=== PATIENT | male | born 1950 | race Caucasian/White ===

== ENCOUNTER 2023-07-13 14:35 | Emergency (ER) | payer OTHER ==
[2023-07-13] MEDS ORDERED: TETRACAINE 0.5% HCL 0.6ML DROPPER.BOTTLE OU ONE (15:19)
[2023-07-13] MEDS ORDERED: FLUORESCEIN NA 1 EA STRIP OU ONE (15:20)
[2023-07-13] MEDS ORDERED: TETRACAINE 0.5% OPHTH SOLN 2 ML BOTTLE ONE (15:22)
[2023-07-13] MEDS ORDERED: FLUORESCEIN NA 1 EA STRIP ONE (15:22)
[2023-07-13 15:32] VITALS: BMI 28.8
[2023-07-13 21:16] VITALS: BP 100/60; TEMP 98.5
[2023-07-13 21:28] VITALS: PULSE 73; RESP 18
== END 2023-07-13 21:35 | disposition short-term general hospital (02) ==
LOC: JER 14:35
DX: H53.8 Other visual disturbances (principal); M54.9 Dorsalgia, unspecified; G89.29 Other chronic pain; H40.052 Ocular hypertension, left eye
CPT/HCPCS: 76512; 99285-25

== ENCOUNTER 2023-08-13 14:21 | Observation (INO) | payer OTHER ==
[2023-08-13 16:14] VITALS: BMI 26.9
[2023-08-13 16:44] LABS: BASO % 0.7 % (0-2.0); EOS % 3.2 % (0-4.5); HEMATOCRIT 44.1 % (35.4-49); MCH 33.6 pg (25.7-33.7); MCHC 33.9 g/dl (32.0-35.9); MEAN PLT VOLUME 9.2 fl (7.5-11.1); MONO % 6.2 % (3.8-10.2); NEUT % 73.9 % (42.8-82.8); PLATELET COUNT 150 10^3/uL (134-434); RBC 4.45 M/mm3 (4.00-5.60); RDW 14.1 % (11.9-15.9); WHITE BLOOD COUNT 5.3 K/mm3 (4.0-10.0)
[2023-08-13 16:53] LABS: EPI CELLS 1 /uL (0-25.1); HYALINE CASTS 0 /uL (0-3.1); PH,URINE 6.5 (5.0-8.0); URINE APPEARANCE CLEAR; URINE BACTERIA 8 /uL (0-1359); URINE BILIRUBIN NEGATIVE (NEGATIVE); URINE COLOR YELLOW; URINE GLUCOSE (UA) 3+ (NEGATIVE); URINE KETONE NEGATIVE (NEGATIVE); URINE LEUK ESTERASE NEGATIVE (NEGATIVE); URINE NITRITE NEGATIVE (NEGATIVE); URINE PROTEIN 1+ (NEGATIVE); URINE RBC 9 /uL (0-23.9); URINE WBC 0 /uL (0-25.8)
[2023-08-13 17:02] LABS: POTASSIUM 3.9 mmol/L (3.5-5.1)
[2023-08-13 17:05] LABS: ALBUMIN 3.5 g/dl (3.4-5.0); MAGNESIUM 1.5 mg/dL (1.8-2.4)
[2023-08-13 17:08] LABS: CREATININE 1.1 mg/dL (0.55-1.3)
[2023-08-13 17:09] LABS: TOT PROT 6.8 g/dl (6.4-8.2)
[2023-08-13] MEDS ORDERED: MAGNESIUM SULFATE IN WATER 2 GM/50 ML IVPB IVPB ONE ×2 (17:28→18:20)
[2023-08-13 17:43] LABS: COCAINE, UR NEGATIVE (NEGATIVE); METHADONE, UR NEGATIVE (NEGATIVE); OPIATES, URI NEGATIVE (NEGATIVE); PHENCYCLIDINE,URINE NEGATIVE (NEGATIVE); URINE AMPHETAMINES NEGATIVE (NEGATIVE); URINE BARBITURATES NEGATIVE (NEGATIVE); URINE BENZODIAZEPINES NEGATIVE (NEGATIVE)
[2023-08-13] MEDS ORDERED: ACETAMINOPHEN 325 MG TABLET (FP) PO PRN (21:51)
[2023-08-13] MEDS ORDERED: DOCUSATE SODIUM 100 MG CAPSULE (FP) PO PRN (21:51)
[2023-08-13] MEDS ORDERED: SODIUM CHLORIDE 1,000 ML IV SCH (22:00)
[2023-08-13] MEDS ORDERED: MECLIZINE HCL 12.5 MG TABLET PO PRN (23:25)
[2023-08-13] MEDS: INSULIN ASPART SLIDING SCALE (NOVOLOG) 1 VIAL SQ SCH (23:47)
[2023-08-13] MEDS ORDERED: LISINOPRIL 20 MG TABLET PO ONE (23:57)
[2023-08-14] MEDS ORDERED: CARVEDILOL 3.125 MG TABLET (FP) ONE (00:17)
[2023-08-14] MEDS ORDERED: LISINOPRIL 20 MG TABLET ONE (00:17)
[2023-08-14] MEDS: CARVEDILOL 3.125 MG TABLET (FP) PO SCH ×3 (00:18→21:15)
[2023-08-14] MEDS: INSULIN ASPART SLIDING SCALE (NOVOLOG) 1 VIAL SQ SCH ×4 (06:32→21:17)
[2023-08-14 08:22] LABS: BASO % 0.9 % (0-2.0); EOS % 3.9 % (0-4.5); HEMATOCRIT 45.4 % (35.4-49); HEMOGLOBIN 15.1 GM/dL (11.7-16.9); LYMPH % 21.3 % (8-40); MCH 33.3 pg (25.7-33.7); MCHC 33.3 g/dl (32.0-35.9); MEAN CELL VOLUME 99.9 fl (80-96); MEAN PLT VOLUME 8.9 fl (7.5-11.1); MONO % 7.5 % (3.8-10.2); NEUT % 66.4 % (42.8-82.8); PLATELET COUNT 141 10^3/uL (134-434); RBC 4.54 M/mm3 (4.00-5.60); RDW 13.8 % (11.9-15.9); WHITE BLOOD COUNT 5.1 K/mm3 (4.0-10.0)
[2023-08-14] MEDS ORDERED: DOCUSATE SODIUM 100 MG CAPSULE (FP) PO PRN (08:23)
[2023-08-14] MEDS ORDERED: MECLIZINE HCL 12.5 MG TABLET PO PRN (08:23)
[2023-08-14] MEDS ORDERED: SODIUM CHLORIDE 1,000 ML IV SCH (08:23)
[2023-08-14 08:45] LABS: POTASSIUM 3.8 mmol/L (3.5-5.1)
[2023-08-14 08:50] LABS: CALCIUM 9.5 mg/dL (8.5-10.1)
[2023-08-14 08:52] LABS: MAGNESIUM 1.8 mg/dL (1.8-2.4)
[2023-08-14 08:53] LABS: PHOSPHOROUS 2.7 mg/dL (2.5-4.9)
[2023-08-14] MEDS: TAMSULOSIN HCL 0.4 MG CAP PO SCH (09:11)
[2023-08-14] MEDS: ASPIRIN COATED 81 MG TABLET.EC PO SCH (09:12)
[2023-08-14] MEDS: amLODIPine BESYLATE 5 MG TABLET (FP) PO SCH (09:12)
[2023-08-14] MEDS ORDERED: ATORVASTATIN CA 80 MG TABLET (FP) PO SCH (22:00)
[2023-08-15] MEDS: ACETAMINOPHEN 325 MG TABLET (FP) PO PRN (05:05)
[2023-08-15] MEDS: INSULIN ASPART SLIDING SCALE (NOVOLOG) 1 VIAL SQ SCH ×4 (06:34→21:55)
[2023-08-15] MEDS: TAMSULOSIN HCL 0.4 MG CAP PO SCH (09:31)
[2023-08-15] MEDS: CARVEDILOL 3.125 MG TABLET (FP) PO SCH ×2 (09:31→21:55)
[2023-08-15] MEDS: ASPIRIN COATED 81 MG TABLET.EC PO SCH (09:31)
[2023-08-15] MEDS: amLODIPine BESYLATE 5 MG TABLET (FP) PO SCH (09:31)
[2023-08-15] MEDS: CLOPIDOGREL BISULFATE 75 MG TABLET (FP) PO SCH (15:22)
[2023-08-15] MEDS ORDERED: ATORVASTATIN CA 20 MG TABLET (FP) PO SCH (22:00)
[2023-08-16] MEDS: ACETAMINOPHEN 325 MG TABLET (FP) PO PRN (00:02)
[2023-08-16] MEDS ORDERED: MELATONIN 5 MG TABLETS PO PRN (01:34)
[2023-08-16] MEDS: INSULIN ASPART SLIDING SCALE (NOVOLOG) 1 VIAL SQ SCH ×2 (06:10→11:50)
[2023-08-16] MEDS: amLODIPine BESYLATE 5 MG TABLET (FP) PO SCH (09:33)
[2023-08-16] MEDS: CLOPIDOGREL BISULFATE 75 MG TABLET (FP) PO SCH (09:33)
[2023-08-16] MEDS: ASPIRIN COATED 81 MG TABLET.EC PO SCH (09:33)
[2023-08-16] MEDS: TAMSULOSIN HCL 0.4 MG CAP PO SCH (09:33)
[2023-08-16] MEDS: CARVEDILOL 3.125 MG TABLET (FP) PO SCH (09:33)
[2023-08-16 16:04] VITALS: BP 140/73; PULSE 77; RESP 20; TEMP 98.1
== END 2023-08-16 16:54 | disposition home or self-care (01) ==
LOC: JER 14:21 → JERBED 20:45 → J4W 08-14 04:51
PROVIDERS: ADMIT Internal Medicine; ATTEND Internal Medicine
PROC: 3E013VG Introduction of Insulin into Subcutaneous Tissue, Percutaneous Approach (ICD-10-PCS; principal; 2023-08-13)
PROC: 3E033GC Introduction of Other Therapeutic Substance into Peripheral Vein, Percutaneous Approach (ICD-10-PCS; 2023-08-13)
PROC: 3E0337Z Introduction of Electrolytic and Water Balance Substance into Peripheral Vein, Percutaneous Approach (ICD-10-PCS; 2023-08-13)
DX: R26.81 Unsteadiness on feet (principal); H40.9 Unspecified glaucoma; R20.8 Other disturbances of skin sensation; N40.0 Benign prostatic hyperplasia without lower urinary tract symptoms; E11.40 Type 2 diabetes mellitus with diabetic neuropathy, unspecified; R53.1 Weakness; R42 Dizziness and giddiness; Z88.2 Allergy status to sulfonamides; Z95.5 Presence of coronary angioplasty implant and graft; I25.2 Old myocardial infarction; F17.210 Nicotine dependence, cigarettes, uncomplicated; Z90.49 Acquired absence of other specified parts of digestive tract; Z98.49 Cataract extraction status, unspecified eye; Z87.828 Personal history of other (healed) physical injury and trauma
CPT/HCPCS: 0241U-QW; 36415; 70450-TC; 71045-TC-FY; 72170-TC-FY; 80048; 80053; 80061; 80307; 81003; 82962; 83036; 83735; 83880; 84100; 84439; 84443; 84450; 84460; 84484; 85025; 87086; 93005; 93010; 93306-TC; 96361; 96365; 96372; 97116-GP; 97162-GP; 99285-25; G0378

== ENCOUNTER 2023-10-31 09:29 | Emergency (ER) | payer OTHER ==
[2023-10-31 09:40] VITALS: BP 138/63; PULSE 77; RESP 17; TEMP 97.6; BMI 29.5
== END 2023-10-31 13:43 | disposition home or self-care (01) ==
LOC: JERFT 09:29 → JER 09:29
DX: H40.89 Other specified glaucoma (principal)
CPT/HCPCS: 99282-25

== ENCOUNTER 2023-11-28 12:58 | Inpatient (IN) | payer OTHER ==
[2023-11-28 13:34] VITALS: BMI 31.3
[2023-11-28] MEDS ORDERED: morphine SULFATE 4 MG/ML VIAL ONE ×2 (14:11→15:07)
[2023-11-28] MEDS: morphine CARPU-JECT 2 MG/1 ML DISP.SYRIN IVPUSH ONE (14:22)
[2023-11-28 14:30] LABS: BASO % 0.6 % (0-2.0); EOS % 2.8 % (0-4.5); HEMATOCRIT 38.7 % (35.4-49); LYMPH % 16.3 % (8-40); MCH 33.2 pg (25.7-33.7); MCHC 33.7 g/dl (32.0-35.9); MEAN CELL VOLUME 98.6 fl (80-96); MEAN PLT VOLUME 8.4 fl (7.5-11.1); MONO % 6.1 % (3.8-10.2); NEUT % 74.2 % (42.8-82.8); PLATELET COUNT 186 10^3/uL (134-434); RBC 3.92 M/mm3 (4.00-5.60); RDW 14.6 % (11.9-15.9); WHITE BLOOD COUNT 6.9 K/mm3 (4.0-10.0)
[2023-11-28 14:35] LABS: INR 1.14 (0.83-1.09); PROTHROMBIN TIME (PATIENT) 13.2 SEC (9.7-13.0)
[2023-11-28 14:38] LABS: ACTIVATED PTT 30.1 SECONDS (25.2-36.5)
[2023-11-28] MEDS: morphine CARPU-JECT 4 MG/1 ML DISP.SYRIN IVPUSH ONE (15:15)
[2023-11-28 15:22] LABS: POTASSIUM 4.7 mmol/L (3.5-5.1)
[2023-11-28 15:24] LABS: ALBUMIN 3.4 g/dl (3.4-5.0); BLOOD UREA NITROGEN 29.8 mg/dL (7-18); CALCIUM 9.9 mg/dL (8.5-10.1); MAGNESIUM 1.6 mg/dL (1.8-2.4)
[2023-11-28 15:27] LABS: CREATININE 1.3 mg/dL (0.55-1.3)
[2023-11-28 15:29] LABS: BILIRUBIN,TOTAL 1.5 mg/dL (0.2-1); TOT PROT 6.5 g/dl (6.4-8.2)
[2023-11-28] MEDS ORDERED: MAGNESIUM 1GM/D5W - 1 GM/100 ML IVPB IVPB ONE (18:55)
[2023-11-28] MEDS ORDERED: oxyCODONE HCL 5 MG TABLET ONE (18:55)
[2023-11-28] MEDS: oxyCODONE HCL 5 MG TABLET PO ONE (19:07)
[2023-11-28] MEDS: MAGNESIUM SULF 50% (8.12 MEQ/2 ML-1 GM VIAL) IVPB ONE (19:42)
[2023-11-29] MEDS ORDERED: ZOLPIDEM TARTRATE 5 MG TABLET ONE (00:03)
[2023-11-29] MEDS: ZOLPIDEM TARTRATE 5 MG TABLET PO ONE (00:29)
[2023-11-29] MEDS ORDERED: morphine SULFATE 4 MG/ML VIAL ONE (00:57)
[2023-11-29] MEDS: morphine SULFATE 4 MG/ML VIAL IVPUSH PRN ×2 (01:02→22:41)
[2023-11-29] MEDS: FAMOTIDINE 20 MG/50 ML IVPB 20 MG/50 ML MG IVPB ONE (01:27)
[2023-11-29] MEDS: INSULIN (NOVOLOG) ASPART 100 UNITS/ML 10ML VIAL SQ ONE ×2 (05:38→20:19)
[2023-11-29 07:43] LABS: BASO % 0.4 % (0-2.0); BLOOD UREA NITROGEN 19.5 mg/dL (7-18); CALCIUM 9.5 mg/dL (8.5-10.1); EOS % 1.5 % (0-4.5); HEMATOCRIT 38.8 % (35.4-49); HEMOGLOBIN 13.5 GM/dL (11.7-16.9); LYMPH % 11.4 % (8-40); MCH 33.9 pg (25.7-33.7); MCHC 34.8 g/dl (32.0-35.9); MEAN CELL VOLUME 97.3 fl (80-96); MEAN PLT VOLUME 8.5 fl (7.5-11.1); MONO % 6.8 % (3.8-10.2); NEUT % 79.9 % (42.8-82.8); PLATELET COUNT 178 10^3/uL (134-434); RBC 3.99 M/mm3 (4.00-5.60); RDW 14.7 % (11.9-15.9); WHITE BLOOD COUNT 9.8 K/mm3 (4.0-10.0)
[2023-11-29 07:46] LABS: CREATININE 1.1 mg/dL (0.55-1.3)
[2023-11-29] MEDS: TAMSULOSIN HCL 0.4 MG CAP PO SCH (09:48)
[2023-11-29] MEDS: amLODIPine BESYLATE 5 MG TABLET (FP) PO SCH (10:32)
[2023-11-29] MEDS: CARVEDILOL 3.125 MG TABLET (FP) PO SCH ×2 (10:32→23:03)
[2023-11-29] MEDS: INSULIN ASPART SLIDING SCALE (NOVOLOG) 1 VIAL SQ SCH ×2 (16:41→23:10)
[2023-11-29] MEDS ORDERED: FENTANYL CITRATE/PF 50 MCG/ML VIAL ONE ×5 (17:20→19:12)
[2023-11-29] MEDS ORDERED: PROPOFOL 20 ML ONE ×2 (17:20→17:24)
[2023-11-29] MEDS ORDERED: ONDANSETRON 4 MG/2 ML VIAL ONE (17:20)
[2023-11-29] MEDS ORDERED: LIDOCAINE HCL/PF 2% SDV 5ML VIAL ONE (17:20)
[2023-11-29] MEDS ORDERED: ceFAZolin SODIUM 1 GM VIAL ONE (17:20)
[2023-11-29] MEDS ORDERED: MIDAZOLAM HCL 2 MG/2 ML SINGLE DOSE VIAL ONE (17:20)
[2023-11-29] MEDS: ceFAZolin SODIUM 1 GM VIAL IVPB ONE (17:41)
[2023-11-29] MEDS ORDERED: ONDANSETRON 4 MG/2 ML VIAL IVPUSH PRN ×3 (19:46→21:16)
[2023-11-29] MEDS ORDERED: ACETAMINOPHEN 1000 MG/100 ML BAG IVPB ONE (19:47)
[2023-11-29] MEDS ORDERED: LACTATED RINGERS SOLUTION 1,000 ML IV SCH (20:00)
[2023-11-29] MEDS ORDERED: oxyCODONE HCL 5 MG TABLET PO PRN (20:24)
[2023-11-29] MEDS ORDERED: morphine SULFATE 4 MG/ML VIAL IVPUSH PRN (20:30)
[2023-11-29] MEDS ORDERED: ACETAMINOPHEN INJECTION 100 ML IVPB ONE (20:38)
[2023-11-29] MEDS: ACETAMINOPHEN 1000 MG/100 ML BAG IVPB ONE ×2 (20:44→21:18)
[2023-11-29] MEDS: LACTATED RINGERS SOLUTION 1,000 ML IV SCH ×2 (21:01→23:03)
[2023-11-29 21:05] LABS: HEMATOCRIT 39.3 % (35.4-49); HEMOGLOBIN 13.2 GM/dL (11.7-16.9); MCH 33.2 pg (25.7-33.7); MCHC 33.6 g/dl (32.0-35.9); MEAN CELL VOLUME 98.8 fl (80-96); MEAN PLT VOLUME 8.3 fl (7.5-11.1); PLATELET COUNT 177 10^3/uL (134-434); RBC 3.98 M/mm3 (4.00-5.60); RDW 14.7 % (11.9-15.9); WHITE BLOOD COUNT 14.7 K/mm3 (4.0-10.0)
[2023-11-29] MEDS ORDERED: INSULIN ASPART SLIDING SCALE (NOVOLOG) 1 VIAL SQ SCH (22:00)
[2023-11-29] MEDS ORDERED: CARVEDILOL 3.125 MG TABLET (FP) PO SCH (22:00)
[2023-11-29] MEDS ORDERED: ATORVASTATIN CA 20 MG TABLET (FP) PO SCH ×2 (22:00)
[2023-11-29 22:17] LABS: POTASSIUM 4.6 mmol/L (3.5-5.1)
[2023-11-29 22:19] LABS: CALCIUM 9.1 mg/dL (8.5-10.1)
[2023-11-29 22:20] LABS: BLOOD UREA NITROGEN 18.9 mg/dL (7-18)
[2023-11-29 22:23] LABS: CREATININE 1.4 mg/dL (0.55-1.3)
[2023-11-29] MEDS ORDERED: hydrOXYzine HCL 50 MG/ML VIAL IM ONE (22:54)
[2023-11-29] MEDS: ATORVASTATIN CA 20 MG TABLET (FP) PO SCH (23:03)
[2023-11-30] MEDS: CEFAZOLIN SODIUM 2 GM in DEXTROSE 5%-WATER 100 ML IVPB SCH (01:53)
[2023-11-30] MEDS ORDERED: CEFAZOLIN SODIUM 2 GM in DEXTROSE 5%-WATER 100 ML IVPB SCH (02:00)
[2023-11-30] MEDS: ACETAMINOPHEN 1000 MG/100 ML BAG IVPB ONE (02:04)
[2023-11-30 06:46] LABS: BASO % 0.5 % (0-2.0); EOS % 0.8 % (0-4.5); HEMATOCRIT 30.6 % (35.4-49); HEMOGLOBIN 10.5 GM/dL (11.7-16.9); LYMPH % 11.6 % (8-40); MCH 33.6 pg (25.7-33.7); MCHC 34.2 g/dl (32.0-35.9); MEAN CELL VOLUME 98.3 fl (80-96); MEAN PLT VOLUME 8.5 fl (7.5-11.1); MONO % 6.9 % (3.8-10.2); NEUT % 80.2 % (42.8-82.8); PLATELET COUNT 149 10^3/uL (134-434); RBC 3.11 M/mm3 (4.00-5.60); RDW 14.4 % (11.9-15.9); WHITE BLOOD COUNT 9.6 K/mm3 (4.0-10.0)
[2023-11-30 07:33] LABS: POTASSIUM 4.2 mmol/L (3.5-5.1)
[2023-11-30 07:37] LABS: CALCIUM 8.4 mg/dL (8.5-10.1)
[2023-11-30 07:38] LABS: BLOOD UREA NITROGEN 25.4 mg/dL (7-18)
[2023-11-30 07:41] LABS: CREATININE 1.5 mg/dL (0.55-1.3)
[2023-11-30 07:43] LABS: TOT PROT 5.4 g/dl (6.4-8.2)
[2023-11-30 07:52] LABS: ALBUMIN 2.6 g/dl (3.4-5.0)
[2023-11-30] MEDS ORDERED: TAMSULOSIN HCL 0.4 MG CAP PO SCH (08:30)
[2023-11-30] MEDS: TAMSULOSIN HCL 0.4 MG CAP PO SCH (08:38)
[2023-11-30] MEDS: amLODIPine BESYLATE 5 MG TABLET (FP) PO SCH (09:31)
[2023-11-30] MEDS: oxyCODONE HCL 5 MG TABLET PO PRN (09:32)
[2023-11-30] MEDS: ENOXAPARIN NA (PORCINE) 40 MG/0.4 ML DISP.SYRIN SQ SCH (09:33)
[2023-11-30] MEDS ORDERED: ENOXAPARIN NA (PORCINE) 40 MG/0.4 ML DISP.SYRIN SQ SCH (10:00)
[2023-11-30] MEDS ORDERED: amLODIPine BESYLATE 5 MG TABLET (FP) PO SCH (10:00)
[2023-11-30] MEDS ORDERED: INSULIN (NOVOLOG) ASPART 100 UNITS/ML 10ML VIAL ONE (21:41)
[2023-12-01 07:19] LABS: BASO % 0.5 % (0-2.0); HEMATOCRIT 26.1 % (35.4-49); HEMOGLOBIN 9.1 GM/dL (11.7-16.9); LYMPH % 15.2 % (8-40); MCH 34.4 pg (25.7-33.7); MCHC 34.9 g/dl (32.0-35.9); MEAN CELL VOLUME 98.5 fl (80-96); MEAN PLT VOLUME 8.6 fl (7.5-11.1); MONO % 6.9 % (3.8-10.2); NEUT % 74.4 % (42.8-82.8); PLATELET COUNT 139 10^3/uL (134-434); RBC 2.65 M/mm3 (4.00-5.60); RDW 14.4 % (11.9-15.9); WHITE BLOOD COUNT 8.7 K/mm3 (4.0-10.0)
[2023-12-01 08:11] LABS: POTASSIUM 4.5 mmol/L (3.5-5.1)
[2023-12-01 08:13] LABS: ALBUMIN 2.3 g/dl (3.4-5.0); BLOOD UREA NITROGEN 24.7 mg/dL (7-18)
[2023-12-01 08:16] LABS: CREATININE 1.2 mg/dL (0.55-1.3)
[2023-12-01 08:18] LABS: BILIRUBIN,TOTAL 1.9 mg/dL (0.2-1); TOT PROT 5.3 g/dl (6.4-8.2)
[2023-12-02 08:09] LABS: BASO % 0.5 % (0-2.0); EOS % 3.3 % (0-4.5); HEMATOCRIT 25.1 % (35.4-49); HEMOGLOBIN 8.7 GM/dL (11.7-16.9); LYMPH % 16.6 % (8-40); MCH 33.7 pg (25.7-33.7); MCHC 34.6 g/dl (32.0-35.9); MEAN CELL VOLUME 97.3 fl (80-96); MEAN PLT VOLUME 8.6 fl (7.5-11.1); MONO % 6.4 % (3.8-10.2); NEUT % 73.2 % (42.8-82.8); PLATELET COUNT 167 10^3/uL (134-434); RBC 2.58 M/mm3 (4.00-5.60); RDW 13.8 % (11.9-15.9)
[2023-12-02 08:30] LABS: POTASSIUM 4.4 mmol/L (3.5-5.1)
[2023-12-02 08:34] LABS: ALBUMIN 2.4 g/dl (3.4-5.0); CALCIUM 8.4 mg/dL (8.5-10.1)
[2023-12-02 08:35] LABS: BLOOD UREA NITROGEN 24.6 mg/dL (7-18)
[2023-12-02 08:38] LABS: CREATININE 1.1 mg/dL (0.55-1.3)
[2023-12-02 08:39] LABS: BILIRUBIN,TOTAL 2.3 mg/dL (0.2-1); TOT PROT 5.4 g/dl (6.4-8.2)
[2023-12-02] MEDS: POLYETHYLENE GLYCOL (HEALTHYLAX) 3350 17 GM PACKET PO SCH (09:53)
[2023-12-02] MEDS: ASPIRIN COATED 81 MG TABLET.EC PO SCH (09:53)
[2023-12-02] MEDS: ACETAMINOPHEN 1000 MG/100 ML BAG IVPB SCH (09:55)
[2023-12-02] MEDS: LACTATED RINGERS SOLUTION 1,000 ML IV SCH (21:37)
[2023-12-02] MEDS: ATORVASTATIN CA 20 MG TABLET (FP) PO SCH (21:37)
[2023-12-02] MEDS: CARVEDILOL 3.125 MG TABLET (FP) PO SCH (21:37)
[2023-12-02] MEDS: INSULIN ASPART SLIDING SCALE (NOVOLOG) 1 VIAL SQ SCH (21:57)
[2023-12-03] MEDS: ACETAMINOPHEN 1000 MG/100 ML BAG IVPB SCH (02:54)
[2023-12-03] MEDS: oxyCODONE HCL 5 MG TABLET PO ONE (06:17)
[2023-12-03] MEDS: TAMSULOSIN HCL 0.4 MG CAP PO SCH (08:34)
[2023-12-03] MEDS: ASPIRIN COATED 81 MG TABLET.EC PO SCH (09:29)
[2023-12-03] MEDS: amLODIPine BESYLATE 5 MG TABLET (FP) PO SCH (09:29)
[2023-12-03] MEDS: POLYETHYLENE GLYCOL (HEALTHYLAX) 3350 17 GM PACKET PO SCH (09:29)
[2023-12-03] MEDS: ENOXAPARIN NA (PORCINE) 40 MG/0.4 ML DISP.SYRIN SQ SCH (09:30)
[2023-12-03 09:43] LABS: BASO % 0.7 % (0-2.0); EOS % 5.4 % (0-4.5); HEMATOCRIT 23.7 % (35.4-49); HEMOGLOBIN 8.2 GM/dL (11.7-16.9); LYMPH % 20.9 % (8-40); MCH 33.6 pg (25.7-33.7); MCHC 34.6 g/dl (32.0-35.9); MEAN CELL VOLUME 97.1 fl (80-96); MEAN PLT VOLUME 8.4 fl (7.5-11.1); MONO % 7.4 % (3.8-10.2); NEUT % 65.6 % (42.8-82.8); PLATELET COUNT 173 10^3/uL (134-434); RBC 2.44 M/mm3 (4.00-5.60); RDW 13.9 % (11.9-15.9); WHITE BLOOD COUNT 5.6 K/mm3 (4.0-10.0)
[2023-12-03 09:59] LABS: POTASSIUM 4.5 mmol/L (3.5-5.1)
[2023-12-03 10:05] LABS: CALCIUM 8.1 mg/dL (8.5-10.1)
[2023-12-03 10:06] LABS: ALBUMIN 2.2 g/dl (3.4-5.0); BLOOD UREA NITROGEN 28.9 mg/dL (7-18)
[2023-12-03 10:09] LABS: CREATININE 1.1 mg/dL (0.55-1.3)
[2023-12-03 10:10] LABS: BILIRUBIN,TOTAL 2.1 mg/dL (0.2-1); TOT PROT 5.1 g/dl (6.4-8.2)
[2023-12-03] MEDS: ACETAMINOPHEN 1000 MG/100 ML BAG IVPB PRN (11:34)
[2023-12-03] MEDS: LIDOCAINE 4% PATCH TP SCH (16:37)
[2023-12-03] MEDS: oxyCODONE HCL 5 MG TABLET PO PRN (16:43)
[2023-12-03] MEDS: SENNOSIDES 8.6MG TABLET (FP) PO PRN (22:44)
[2023-12-03] MEDS: LIDOCAINE PATCH REMOVAL MC SCH (22:45)
[2023-12-05 09:12] LABS: HEMATOCRIT 27.7 % (35.4-49); HEMOGLOBIN 9.3 GM/dL (11.7-16.9); MCH 32.7 pg (25.7-33.7); MCHC 33.6 g/dl (32.0-35.9); MEAN CELL VOLUME 97.4 fl (80-96); PLATELET COUNT 262 10^3/uL (134-434); RBC 2.85 M/mm3 (4.00-5.60); RDW 14.1 % (11.9-15.9); WHITE BLOOD COUNT 6.4 K/mm3 (4.0-10.0)
[2023-12-05] MEDS: ACETAMINOPHEN 325 MG TABLET (FP) PO PRN (12:58)
[2023-12-06] MEDS: amLODIPine BESYLATE 2.5 MG TABLET (FP) PO SCH (01:07)
[2023-12-06] MEDS: LISINOPRIL 5 MG TABLET PO SCH (09:30)
[2023-12-07] MEDS: POLYETHYLENE GLYCOL (HEALTHYLAX) 3350 17 GM PACKET PO SCH (09:08)
[2023-12-07 09:14] LABS: EPI CELLS 2 /uL (0-25.1); HYALINE CASTS 0 /uL (0-3.1); PH,URINE 6.5 (5.0-8.0); URINE APPEARANCE CLEAR; URINE BACTERIA 2967 /uL (0-1359); URINE BILIRUBIN NEGATIVE (NEGATIVE); URINE COLOR YELLOW; URINE GLUCOSE (UA) 3+ (NEGATIVE); URINE KETONE NEGATIVE (NEGATIVE); URINE LEUK ESTERASE NEGATIVE (NEGATIVE); URINE NITRITE NEGATIVE (NEGATIVE); URINE PROTEIN 1+ (NEGATIVE); URINE RBC 6 /uL (0-23.9); URINE WBC 12 /uL (0-25.8)
[2023-12-07] MEDS: INSULIN (LEVEMIR) 100 UNITS/ML UNITS SQ SCH (10:00)
[2023-12-07 13:28] VITALS: BP 112/79; PULSE 70; RESP 18; TEMP 97.6
== END 2023-12-07 11:45 | DRG 481 ==
LOC: JER 12:58 → JERBED 15:52 → J7W 11-29 03:07 → J4W 11-29 22:15 → J5S 12-02 20:52
PROVIDERS: ADMIT Internal Medicine; ATTEND Internal Medicine
PROC: 0QS706Z Reposition Left Upper Femur with Intramedullary Internal Fixation Device, Open Approach (ICD-10-PCS; principal; 2023-11-29 17:00)
DX: S72.142A Displaced intertrochanteric fracture of left femur, initial encounter for closed fracture (principal); D62 Acute posthemorrhagic anemia; E11.42 Type 2 diabetes mellitus with diabetic polyneuropathy; I10 Essential (primary) hypertension; I25.10 Atherosclerotic heart disease of native coronary artery without angina pectoris; E78.5 Hyperlipidemia, unspecified; N40.0 Benign prostatic hyperplasia without lower urinary tract symptoms; H40.9 Unspecified glaucoma; Z95.5 Presence of coronary angioplasty implant and graft; W01.0XXA Fall on same level from slipping, tripping and stumbling without subsequent striking against object, initial encounter; Y92.488 Other paved roadways as the place of occurrence of the external cause; Y99.9 Unspecified external cause status
CPT/HCPCS: 0241U-QW; 36415; 72170-TC-FY; 73521-TC-FY; 73552-TC-LT-FY; 76000-TC-FY; 80048; 80053; 81003; 82962; 83735; 85025; 85027; 85610; 85730; 86850; 86900; 86901; 86922; 87086; 87186; 87635; 93005; 93010; 93306-TC; 94760; 97116-GP; 97161-GP; 99285-25; C1713; J0131